=== PATIENT | female | born 1960 | race Caucasian/White ===

== ENCOUNTER 2016-08-30 17:22 | Emergency (ER) | payer OTHER ==
[2016-08-30 18:45] LABS: BASOPHIL 0.7 % (0-2); EOSINOPHIL 4.8 % (0-5); HCT 42.3 % (37.0-47.0); HGB 14.6 g/dl (12.5-16.0); LYMPHOCYTE 36.2 % (15-48); MCH 32.5 pg (25.0-31.0); MCHC 34.5 g/dL (32.0-36.0); MCV 94.2 fL (78.0-100.0); MONOCYTE 7.6 % (0-12); MPV 9.3 fL (6.0-9.5); NEUTROPHIL 50.7 % (41-80); PLT 245 K/uL (150-400); RBC 4.49 M/uL (4.20-5.40); RDW 12.6 % (11.5-14.0); WBC 6.9 K/uL (4.0-10.5)
[2016-08-30 19:03] LABS: ALBUMIN 4.8 g/dL (3.5-5.0); BILIRUBIN - TOTAL 0.2 mg/dL (0.1-1.0); CREATININE 0.8 mg/dL (0.5-1.0); GLOBULIN (CALCULATION) 2.5 g/dL (2.2-4.2); POTASSIUM 3.9 mmol/L (3.5-5.1); TOTAL PROTEIN 7.3 g/dL (6.4-8.3)
[2016-08-30 19:04] LABS: TROPONIN T < 0.010 ng/mL
[2016-08-30 19:13] LABS: PRO-BNP 166 pg/mL (0-125)
[2016-08-30 19:14] LABS: FT4 (FREE T4) 1.03 ng/dL (0.93-1.70); TSH (THYROID STIM HORMONE) 2.08 uIU/mL (0.270-4.200)
[2016-08-30 19:24] LABS: AMPHETAMINES NEGATIVE (NEGATIVE); BARBITURATES NEGATIVE (NEGATIVE); BENZODIAZEPINES NEGATIVE (NEGATIVE); COCAINE NEGATIVE (NEGATIVE); MARIJUANA (THC) NEGATIVE (NEGATIVE); METHADONE NEGATIVE (NEGATIVE); TRICYCLIC ANTIDEPRESSANT NEGATIVE (NEGATIVE)
== END 2016-08-30 21:20 | disposition home or self-care (01) ==
LOC: FER 17:22
PROVIDERS: Internal Medicine
DX: I10 Essential (primary) hypertension (principal); J44.9 Chronic obstructive pulmonary disease, unspecified; F32.9 Major depressive disorder, single episode, unspecified; F17.210 Nicotine dependence, cigarettes, uncomplicated; Z79.899 Other long term (current) drug therapy
CPT/HCPCS: 36415; 71020; 80053; 80305; 83690; 83880; 84439; 84443; 84484; 85025; 93005